=== PATIENT | male | born 1965 | race Caucasian/White ===

== ENCOUNTER 2020-04-22 22:40 | Emergency (ER) | payer OTHER ==
[2020-04-22] MEDS ORDERED: Sodium Chloride 0.9% 10 ML Syringe FLUSH PRN (23:02)
[2020-04-22] MEDS ORDERED: Lidocaine 1% 10 ML MDV INJECT ONE (23:03)
[2020-04-22] MEDS ORDERED: HYDROmorphone 0.5 MG/0.5 ML Syringe IVPUSH ONE (23:03)
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
--- NOTE | 2020-04-23 09:06 | CR ---
Left wrist: 4 views of the left wrist were obtained. Comparison: No previous wrist imaging is available. Mildly comminuted distal radial fracture is seen with posterior impaction causing dorsal tilt of the distal radial articular margin. Fracture is noted within the ulnar styloid process which is displaced. Slight cortical thickening is seen within the proximal radius most likely due to old healed fracture or other old healed injury. Soft tissue swelling is noted. No additional abnormality is appreciated. Impression: 1. Impacted distal radial fracture and ulnar styloid fracture. 2. Soft tissue swelling. Diagnostic code #3
--- NOTE | 2020-04-23 12:46 | CR ---
Left wrist: 2 views of the left wrist were obtained. Comparison: Prior left wrist exam performed earlier on the same day. Distal radial fracture is noted. Continuing posterior impaction is seen with dorsal tilt of the distal radial articular margin. This finding is slightly improved from prior exam. Displaced ulnar styloid process fracture is stable. Soft tissue swelling is noted. Impression: 1. Posterior impacted distal left radial fracture. This impaction is slightly improved from prior exam. 2. Other findings as noted above which are stable. Diagnostic code #3
== END 2020-04-23 00:27 | disposition home or self-care (01) ==
LOC: JD.ED 22:40
DX: S52.592A Other fractures of lower end of left radius, initial encounter for closed fracture (principal); S52.612A Displaced fracture of left ulna styloid process, initial encounter for closed fracture; S00.83XA Contusion of other part of head, initial encounter; Y04.0XXA Assault by unarmed brawl or fight, initial encounter
CPT/HCPCS: 25605; 36415; 73100; 73110; 80053; 80179; 85025; 96374; 99284; J1170; J2001